=== PATIENT | male | born 1990 ===

== ENCOUNTER 2020-02-20 17:58 | Emergency (ER) | payer SELFPAY ==
[~2020-02-20] VITALS: Ht 170 cm; Wt 98.0 kg
--- NOTE | 2020-02-20 18:36 | NUR ---
DUE TO PT'S COMPLAINT OF SOA PT MOVED TO [facility].
[2020-02-20] MEDS ORDERED: LACTATED RINGERS 1,000 ML IV ONE (18:46)
--- NOTE | 2020-02-20 19:01 | ED GI ---
General Chief Complaint: Respiratory Problems Stated Complaint: ABDOMEN SWOLLEN Nursing Triage Note: ARRIVED VIA AMB TO ROOM 06 WITH COMPLAINTS SOA FOR X3 DAYS. STATES HE WAS SEEN AT [facility] YESTERDAY AND TOLD HE DID NOT NEED TESTED FOR COVID. TODAY HE STATES HIS ABD IS SWOLLEN ALONG WITH THE SOA. Sepsis Screen: No Definite Risk Source of Information: Patient History of Present Illness Date Seen by Provider: Feb 20, 2020 Time Seen by Provider: 18:38 Initial Comments PT ARRIVES VIA POV FROM HOME C/O FEELING LIKE HIS ABDOMEN HAS BEEN BLOATED SINCE Saturday02/18/20 NO ACTUAL ABDOMINAL PAIN NO NAUSEA/VOMITING/DIARRHEA. HAS BEEN CONSTIPATED--LAST BM WAS 3 DAYS AGO NO FEVER NO COUGH OR URI SYMPTOMS NO SORE THROAT THINKS HE MIGHT BE A LITTLE SHORT OF BREATH FOR THE LAST 2-3 DAYS, SINCE THE BLOATING STARTED--DOES NOT COMPLAIN OF THIS UNTIL DIRECT QUESTIONING ON REVIEW OF SYSTEMS HAS CONTINUED TO EAT AND DRINK USUAL, ATE FRIED CHICKEN STRIPS AND CURLY FRIES FOR LUNCH. VOIDING NORMALLY--VOIDED JUST PRIOR TO ARRIVAL HAS NOT TAKEN ANYTHING FOR SYMPTOMS WAS SEEN AT [facility] YESTERDAY --PT WANTED TESTED FOR COVID-19, BUT PT DID NOT MEET CRITERIA FOR TESTING AT THAT TIME. NO TESTS DONE AND NO RX'S GIVEN NO KNOWN SICK CONTACTS--PT LIVES ALONE AND WORKS AT [employer] NO HISTORY OF GI OR RESPIRATORY PROBLEMS PCP: NONE Allergies and Home Medications Allergies Coded Allergies: No Known Drug Allergies (Unverified , 02/20/20) Home Medications Hyoscyamine Sulfate 0.125 Mg Tab.subl, 0.25 MG SL Q4H Prescribed by: JACY GAY on 02/20/202052 Patient Home Medication List Home Medication List Reviewed: Yes Review of Systems Review of Systems Constitutional: no symptoms reported; No chills, No diaphoresis, No dizziness, No fever, No malaise EENTM: No Symptoms Reported; No Nose Congestion, No Throat Pain Respiratory: See HPI; Denies Cough; Shortness of Air (POSSIBLY VERY SLIGHT) Cardiovascular: No Symptoms Reported; Denies Chest Pain, Denies Edema, Denies Lightheadedness, Denies Palpitations, Denies Syncope Gastrointestinal: See HPI; Denies Abdominal Pain, Denies Constipated, Denies Diarrhea, Denies Nausea, Denies Vomiting Genitourinary: No Symptoms Reported Musculoskeletal: no symptoms reported Skin: no symptoms reported Psychiatric/Neurological: No Symptoms Reported Endocrine: No Symptoms Reported Hematologic/Lymphatic: No Symptoms Reported Past Lczbate-Bdrwyt-Pmelye Hx Past Med/Social Hx: Reviewed and Corrections made Patient Social History Alcohol Use: Denies Use Recreational Drug Use: No Smoking Status: Never a Smoker Recent Foreign Travel: No Contact w/Someone Who Travel: No Recent Infectious Disease Expo: No Recent Hopitalizations: No Seasonal Allergies Seasonal Allergies: No Past Medical History Surgeries: No Respiratory: No Cardiac: No Neurological: No Genitourinary: No Gastrointestinal: No Musculoskeletal: No Endocrine: No HEENT: No Cancer: No Psychosocial: No Integumentary: No Blood Disorders: No Physical Exam Vital Signs Vital Signs - First Documented 02/20/20 18:10 Temp 36.7 Pulse 73 Resp 16 B/P (MAP) 150/90 (110) Pulse Ox 97 O2 Delivery Room Air Capillary Refill : Less Than 3 Seconds Height/Weight/BMI Height: '" Weight: lbs. oz. kg; 33.00 BMI Method: General Appearance: WD/WN, no apparent distress, other (WALSK UPRIGHT AND MOVES WITHOUT DIFFICULTY. DOES NO APPEAR ILL OR TO BE IN ANY DISCOMFORT OR DISTRESS WHATSOEVER. NO DYSPNEA AT ANY TIME, EVEN WITH EXERTION. 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, no motor/sensory deficits, alert, normal mood/affect, oriented x 3 Skin: normal color, warm/dry; No rash Progress/Results/Core Measures Results/Orders Lab Results Laboratory Tests Test 02/20/20 18:16 02/20/20 19:07 Range/Units Urine Color YELLOW Urine Clarity CLEAR Urine pH 7.0 5-9 Urine Specific [place] 1.020 1.016-1.022 Urine Protein NEGATIVE NEGATIVE Urine Glucose (UA) NEGATIVE NEGATIVE Urine Ketones NEGATIVE NEGATIVE Urine Nitrite NEGATIVE NEGATIVE Urine Bilirubin NEGATIVE NEGATIVE Urine Urobilinogen 1.0 < = 1.0 MG/DL Urine Leukocyte Esterase NEGATIVE NEGATIVE Urine RBC (Auto) NEGATIVE NEGATIVE Urine RBC NONE /HPF Urine WBC NONE /HPF Urine Crystals NONE /LPF Urine Bacteria NEGATIVE /HPF Urine Casts NONE /LPF Urine Mucus NEGATIVE /LPF Urine Culture Indicated NO White Blood Count 8.6 4.3-11.0 10^3/uL Red Blood Count 5.26 4.35-5.85 10^6/uL Hemoglobin 15.7 13.3-17.7 G/DL Hematocrit 44 40-54 % Mean Corpuscular Volume 83 80-99 FL Mean Corpuscular Hemoglobin 30 25-34 PG Mean Corpuscular Hemoglobin Concent 36 32-36 G/DL Red Cell Distribution Width 13.1 10.0-14.5 % Platelet Count 220 130-400 10^3/uL Mean Platelet Volume 11.1 H 7.4-10.4 FL Neutrophils (%) (Auto) 57 42-75 % Lymphocytes (%) (Auto) 34 12-44 % Monocytes (%) (Auto) 8 0-12 % Eosinophils (%) (Auto) 1 0-10 % Basophils (%) (Auto) 1 0-10 % Neutrophils # (Auto) 4.9 1.8-7.8 X 10^3 Lymphocytes # (Auto) 3.0 1.0-4.0 X 10^3 Monocytes # (Auto) 0.7 0.0-1.0 X 10^3 Eosinophils # (Auto) 0.1 0.0-0.3 10^3/uL Basophils # (Auto) 0.0 0.0-0.1 10^3/uL Sodium Level 139 135-145 MMOL/L Potassium Level 4.0 3.6-5.0 MMOL/L Chloride Level 105 98-107 MMOL/L Carbon Dioxide Level 20 L 21-32 MMOL/L Anion Gap 14 5-14 MMOL/L Blood Urea Nitrogen 17 7-18 MG/DL Creatinine 1.01 0.60-1.30 MG/DL Estimat Glomerular Filtration Rate > 60 BUN/Creatinine Ratio 17 Glucose Level 99 70-105 MG/DL Calcium Level 9.1 8.5-10.1 MG/DL Corrected Calcium 8.7 8.5-10.1 MG/DL Magnesium Level 2.1 1.6-2.4 MG/DL Total Bilirubin 0.4 0.1-1.0 MG/DL Aspartate Amino Transf (AST/SGOT) 26 5-34 U/L Alanine Aminotransferase (ALT/SGPT) 38 0-55 U/L Alkaline Phosphatase 63 40-136 U/L B-Type Natriuretic Peptide < 10.0 <100.0 PG/ML Total Protein 8.6 H 6.4-8.2 GM/DL Albumin 4.5 3.2-4.5 GM/DL Amylase Level 88 25-125 U/L Lipase 36 8-78 U/L My Orders Orders - JACY GAY DO Ed Iv/Invasive Line Start (02/20/20 18:46) Lactated Ringers (Lr 1000 Ml Iv Solution (02/20/20 18:46) Ekg Tracing (02/20/20 19:20) Monitor-Rhythm Ecg Trace Only (02/20/20 19:20) BNP (02/20/20 19:20) Magnesium (02/20/20 19:20) Ct Abdomen/Pelvis W (02/20/20 19:21) Chest 1 View, Ap/Pa Only (02/20/20 19:21) Iohexol Injection (Omnipaque 350 Mg/Ml 1 (02/20/20 20:30) Received Contrast (Hold Metformin- Contr (02/20/20 20:30) Ns (Ivpb) (Sodium Chloride 0.9% Ivpb Bag (02/20/20 20:30) Sodium Chloride Flush (Catheter Flush Sy (02/20/20 20:30) Hyoscyamine Sl Tablet (Levsin Sl Tablet) (02/20/20 21:00) Medications Given in ED Current Medications Medications Dose Ordered Sig/Jihan Route Start Time Stop Time Status Last Admin Dose Admin Hyoscyamine Sulfate 0.25 mg ONCE ONCE PO 02/20/20 21:00 02/20/20 21:01 DC 02/20/20 21:02 0.25 MG Iohexol 100 ml ONCE ONCE IV 02/20/20 20:30 02/20/20 20:31 DC 02/20/20 20:20 100 ML Lactated Ringer's 1,000 ml @ 0 mls/hr Q0M ONCE IV 02/20/20 18:46 02/20/20 18:48 DC 02/20/20 19:18 1,000 MLS/HR Sodium Chloride 10 ml NEEDED PRN IV 02/20/20 20:30 02/20/20 21:11 DC 02/20/20 20:20 10 ML Sodium Chloride 100 ml ONCE ONCE IV 02/20/20 20:30 02/20/20 20:31 DC 02/20/20 20:20 80 ML Vital Signs/I&O 02/20/20 02/20/20 18:10 21:11 Temp 36.7 Pulse 73 65 Resp 16 17 B/P (MAP) 150/90 (110) 121/83 (110) Pulse Ox 97 97 O2 Delivery Room Air Blood Pressure Mean: 110 Progress Progress Note : Progress Note PT SEEN IN COVID UNIT--PPE WORN AT ALL TIMES NO COMPLAINTS OF ANY KIND DURING ENTIRE STAY VITALS STABLE Initial ECG Impression Date: Feb 20, 2020 Initial ECG Impression Time: 19:25 Initial ECG Rate: 61 Initial ECG Rhythm: Normal Sinus Initial ECG Comparisson: No Previous ECG Available Diagnostic Imaging Comments CXR--NO ACUTE PROCESS, PER RADIOLOGIST REPORT AT 2034 CT ABDOMEN/PELVIS--NO ACUTE PROCESS, PER RADIOLOGIST REPORT AT 2048 Reviewed: Reviewed by Me Departure Impression Primary Impression: SENSATION OF ABDOMINAL BLOATING Additional Impression: Constipation Disposition: 01 HOME, SELF-CARE Condition: Stable Departure-Patient Inst. Patient Instructions: Constipation, Adult (DC), Gas and Bloating Add. Discharge Instructions: CLEAR LIQUIDS--WATER, BROTH, JELLO, GATORADE NO FOOD UNTIL YOUR SYMPTOMS ARE BETTER, THEN GRADUALLY ADD A BLAND DIET--RICE, TOAST, SALTINES, APPLESAUCE TAKE MIRALAX 2-3 TIMES A DAY UNTIL YOU HAVE A BM, THEN TAKE DAILY FOLLOW UP WITH DR OF CHOICE IN 2-3 DAYS IF NO BETTER All discharge instructions reviewed with patient and/or family. Voiced understanding. Scripts Hyoscyamine Sulfate (Levsin-Sl) 0.125 Mg Tab.subl 0.25 MG SL Q4H, #10 TAB Prov: JACY GAY DO 02/20/20 JACY GAY DO Feb 20, 2020 19:01
[2020-02-20 19:28] LABS: BASOPHILS % (AUTO) 1 % (0-10); EOSINOPHILS # (AUTO) 0.1 10^3/uL (0.0-0.3); EOSINOPHILS % (AUTO) 1 % (0-10); HEMATOCRIT 44 % (40-54); HEMOGLOBIN 15.7 G/DL (13.3-17.7); LYMPHOCYTES % (AUTO) 34 % (12-44); MEAN CORPUSCULAR HEMOGLOBIN 30 PG (25-34); MEAN CORPUSCULAR HGB CONC 36 G/DL (32-36); MEAN CORPUSCULAR VOLUME 83 FL (80-99); MEAN PLATELET VOLUME 11.1 FL (7.4-10.4); MONOCYTES # (AUTO) 0.7 X 10^3 (0.0-1.0); MONOCYTES % (AUTO) 8 % (0-12); NEUTROPHILS # (AUTO) 4.9 X 10^3 (1.8-7.8); NEUTROPHILS % (AUTO) 57 % (42-75); PLATELET COUNT 220 10^3/uL (130-400); RED CELL DISTRIBUTION WIDTH 13.1 % (10.0-14.5); WHITE BLOOD COUNT 8.6 10^3/uL (4.3-11.0)
[2020-02-20 19:31] LABS: BILIRUBIN,URINE NEGATIVE (NEGATIVE); CLARITY,URINE CLEAR; COLOR,URINE YELLOW; GLUCOSE, URINE (UA) NEGATIVE (NEGATIVE); KETONES,URINE NEGATIVE (NEGATIVE); LEUKOCYTE ESTERASE ,URINE NEGATIVE (NEGATIVE); NITRITE,URINE NEGATIVE (NEGATIVE); PROTEIN,URINE NEGATIVE (NEGATIVE)
[2020-02-20 19:42] LABS: ALBUMIN 4.5 GM/DL (3.2-4.5)
[2020-02-20 19:43] LABS: AMYLASE 88 U/L (25-125); CALCIUM 9.1 MG/DL (8.5-10.1)
[2020-02-20 19:44] LABS: GLUCOSE 99 MG/DL (70-105); TOTAL PROTEIN 8.6 GM/DL (6.4-8.2)
[2020-02-20 19:45] LABS: CARBON DIOXIDE 20 MMOL/L (21-32)
[2020-02-20 19:46] LABS: BILIRUBIN,TOTAL 0.4 MG/DL (0.1-1.0)
[2020-02-20 19:48] LABS: ALKALINE PHOSPHATASE 63 U/L (40-136); CREATININE SERUM 1.01 MG/DL (0.60-1.30); GFR ESTIMATED > 60
[2020-02-20 19:49] LABS: BUN/CREATININE RATIO 17
[2020-02-20 19:51] LABS: ALANINE AMINOTRANSFERASE 38 U/L (0-55); LIPASE 36 U/L (8-78)
[2020-02-20 20:03] LABS: BACTERIA,URINE NEGATIVE /HPF
[2020-02-20 20:05] LABS: CHLORIDE 105 MMOL/L (98-107); SODIUM 139 MMOL/L (135-145)
[2020-02-20] MEDS ORDERED: NS 100 ML (IVPB) BAG IV ONE (20:30)
[2020-02-20] MEDS ORDERED: CATHETER FLUSH 10 ML SYR IV PRN (20:30)
[2020-02-20] MEDS ORDERED: IOHEXOL 350 MG/ML 100 ML (OMNIPAQUE 350) VIAL IV ONE (20:30)
[2020-02-20] MEDS ORDERED: HOLD METFORMIN - RECEIVED CONTRAST 20 ML VIAL IV SCH (20:30)
--- NOTE | 2020-02-20 20:30 | Diagnostic Imaging Report ---
Clinical indication: Patient with slight shortness of air. Exam: Portable chest x-ray upright view. Comparisons: None. Findings: Lungs/pleura: Lungs are clear. There is no pneumothorax. There is no pleural effusion. Mediastinum: Unremarkable. Pulmonary vasculature: Unremarkable. Heart: Unremarkable. Bones/extrathoracic soft tissue: Unremarkable. Impression: There is no radiographic evidence of acute cardiopulmonary process. Dictated by: Dictated on workstation # [id number]
--- NOTE | 2020-02-20 20:39 | Diagnostic Imaging Report ---
CLINICAL INDICATION: Patient with swollen abdomen. No nausea, vomiting or diarrhea. No past surgical history or cancer. EXAM: CT scan of the abdomen and pelvis performed with 100 mL of Omnipaque 350 IV contrast. Coronal and sagittal reformatted images were created. Auto Exposure Controls were utilized during the CT exam to meet ALARA standards for radiation dose reduction. COMPARISON: None. FINDINGS: The visualized lung bases are clear. Bones show no significant abnormality. There is diffuse low attenuation seen throughout the liver suspected to represent diffuse fatty infiltration. Otherwise, liver is unremarkable. The spleen, pancreas, gallbladder and adrenal glands are unremarkable. Both kidneys are unremarkable with no hydronephrosis, stone or mass. There is no intra-abdominal free air or free fluid. The appendix is unremarkable. The stomach, small bowel and colon are unremarkable. There is no intestinal obstruction. There is no lymphadenopathy. The bladder is fluid distended with no gross abnormality seen. Visualized portions of the prostate gland are unremarkable. IMPRESSION: Unremarkable CT scan of the abdomen and pelvis. Dictated by: Dictated on workstation # [id number]
[2020-02-20] MEDS ORDERED: HYOS0.1283 SL (20:53)
[2020-02-20] MEDS ORDERED: HYOSCYAMINE 0.125 MG (LEVSIN) TAB PO ONE (21:00)
[2020-02-20 21:11] VITALS: BP 121/83
== END 2020-02-20 21:11 | disposition home or self-care (01) ==
LOC: ER 18:01
DX: R14.0 Abdominal distension (gaseous) (principal); K59.00 Constipation, unspecified
CPT/HCPCS: 36415; 71045; 74177; 80053; 81000; 82150; 83690; 83735; 83880; 85025; 93041